=== PATIENT | male | born 1940 | race Caucasian/White ===

== ENCOUNTER 2018-04-11 10:59 | Outpatient (CLI) ==
[2013-11-30 17:57] VITALS: BMI 32.5
--- NOTE | 2018-04-11 14:32 | DI ---
EXAM: Three views of the nasal bones. History: Nasal trauma. Findings: Evaluation is difficult due to overlapping osseous and soft tissue structures. No grossly displaced fractures identified. No distinct air-fluid levels are seen in the sinuses. Impression: No acute findings.
--- NOTE | 2018-04-11 14:34 | DI ---
EXAM: Radiographs, right wrist HISTORY: Initial presentation for right wrist trauma. COMPARISON: None available. TECHNIQUE: Three views. FINDINGS: The bones are demineralized. No fracture detected. Osteoarthritic changes are greatest a t the MCP joints. No localized soft tissue abnormality detected. Atherosclerotic calcifications are present. IMPRESSION: No fracture or dislocation.
--- NOTE | 2018-04-11 14:34 | DI ---
EXAM: RIGHT HAND, 3 VIEWS HISTORY: Fall, pain FINDINGS: Bone density appears decreased. Diffuse arthropathy, greatest at the distal interphalange al joints suggesting osteoarthritis. Exam is limited by nonstandard patient position. No acute frac ture is seen. Joints appear remain intact. IMPRESSION: No fracture or dislocation is identified. If concern is persistent, consider follow-up imaging.
--- NOTE | 2018-04-11 14:34 | DI ---
EXAM: Radiographs, right knee HISTORY: Initial presentation for right knee trauma. COMPARISON: None available. TECHNIQUE: Four views. FINDINGS/IMPRESSION: Right total knee arthroplasty hardware components appear well seated. No fracture or dislocation tamera ntified. No localized soft tissue abnormality is detected.
--- NOTE | 2018-04-11 14:35 | DI ---
EXAM: LEFT KNEE. HISTORY: Knee pain FINDINGS: Left knee four view. No comparison. Patient has underwent previous total knee arthroplas ty. The prosthesis appears seated without evidence of dislodgement or loosening. No acute fracture is identified. There is at least a small joint effusion. IMPRESSION: Previous knee arthroplasty. No fracture. Joint effusion is present.
== END 2018-04-11 11:00 | disposition home or self-care (01) ==
LOC: RAD 10:59
PROVIDERS: ATTEND Family Medicine
DX: S00.83XA Contusion of other part of head, initial encounter (principal); M25.561 Pain in right knee; M79.641 Pain in right hand; R42 Dizziness and giddiness; W01.0XXA Fall on same level from slipping, tripping and stumbling without subsequent striking against object, initial encounter
CPT/HCPCS: 36415; 80053; 85025

== ENCOUNTER 2018-10-20 12:55 | Outpatient (CLI) ==
[2013-11-30 17:57] VITALS: BMI 32.5
== END 2018-10-20 12:56 | disposition home or self-care (01) ==
LOC: FCC-LAB 12:55
PROVIDERS: ATTEND Family Medicine
DX: E78.2 Mixed hyperlipidemia (principal); M19.90 Unspecified osteoarthritis, unspecified site; R53.82 Chronic fatigue, unspecified; I10 Essential (primary) hypertension; E53.8 Deficiency of other specified B group vitamins; Z12.5 Encounter for screening for malignant neoplasm of prostate
CPT/HCPCS: 36415; 80053; 80061; 82607; 84443; 85025

== ENCOUNTER 2019-05-12 12:17 | Inpatient (IN) ==
[2019-05-12 13:50] VITALS: BMI 27.6
[2019-05-12] MEDS ORDERED: PROAIR HFA IH PRN (14:20)
[2019-05-12] MEDS ORDERED: ALBUTEROL 0.083% NEB NEB PRN (14:20)
--- NOTE | 2019-05-12 17:31 | PCM ---
- Chief Complaint Chief Complaint: Spondylolisthesis Post Surgical - History of Present Illness History of Present Illness: 78 yo WM room 115 arrived today around 12:30. H+P from Dr. Trotter reviewed today from 05/07/19 through [facility]. Preoperative dx Lumbar DDD L4-5, right greater than left neural foraminal stenosis L4-5, facet hypertrophy with anterior facet spurring creating severe foraminal, chronic right lower extremity lumbar radiculopathy in L5. Post operative diagnosis reviewed and listed as same. procedure completed as right sided L4-5 hemilaminectomy with subtotal facetectomy and decompression of L5/S1 nerve roots more than that required for TLIF. Transforaminal lumbar interbody fusion of L4-5. placement of biochemical interobdy fusion device L4-5 with CoreLink titanium 9mm TLIF spacer. Posterolateral fusion with pedicle screw instrumentation L4-5. Allograft/ autograft denice. dr. Trotter did surgery, jesse munoz PA-C assisted. Procedure done under general anesthesia, crystalloid fluids given. BP 05/08/19 131/53 0039 , 05/08/19 141/64, 136/73 0757. D/C summary reviewed d/c 05/12/19 after procedure 05/07/19. Spondylolisthesis L4-5. Was d/c from facility and sent to our facility for TCU. meds advair, albuterol 2.5/3ml, astelin, lipitor, wellbutrin, levothyroxine, lisinopril, singulair and eye drops. Activity recommended by ortho to include lifting/bending/twisting LSO when up and out of bed. Bracing to be used regularly. participate in rehab protocol. Regular diet. Keep wound clean and dry and change every 72 hours. Cover for shower. Archer 5/325 for pain. exam from [facility] reviewed and passing gas, Lower extremity motor normal. Activity level up with assist, brace if OOB. Pain control. Impaired functional mobility balance gait and endurance. impaired mobility and ADL. Functinoal mobility able to walk in hallway using rolling walker. sit- stand transfer. Side lying to sit and sit to sidelying present. Supervised activity. Work w/ therapy on balance and endurance. Reviewed OT and phys therapy notes. Discharge summary obtained and reviewed from team, hospital course reviewed. D/ C meds reviewed. - Review of Systems Constitutional: No: fever, chills, weakness, sweats, fatigue, loss of appetite, other Eyes: No: blurred vision, double-vision, discharge, itching, pain, redness, photophobia, other Ears: No: pain, bleeding, drainage, ringing, hearing loss, other Nose: congestion. No: bleeding, discharge, other Throat: No: pain, swelling, voice change, other Mouth: No: bleeding, pain, swelling, other Respiratory: No: cough, shortness of air, wheeze, hemoptysis, pain with breathing, other Cardiovascular: No: chest pain, left arm pain, diaphoresis, PND, orthopnea, edema, palpitations, syncope, other Gastrointestinal: No: abdominal pain, other, nausea, vomiting, diarrhea, melena , hematemesis, hematochezia, dysphagia, constipation Genitourinary: No: dysuria, hematuria, frequency, incontinence, flank pain, penile discharge, testicular pain, testicular swelling, other Neurological: No: headache, other, dizziness, seizure, numbness, weakness, speech difficulty, problems with walking, tremor, fainting Musculoskeletal: pain, other (back pain) Skin: No: rash, pruritus, lacerations, wounds, bruising, other Immunology: No: hives, itching, frequent infections, difficulty healing, other Hematology: No: easy bruising, easy bleeding, swollen glands, other Endocrine: No: weight changes, cold intolerance, heat intolerance, excessive thirst, excessive hunger, polyuria, other Psychiatric: No: depression, anxiety, sleeplessness, hopelessness, suicidal, hallucinations, other Habits: No: tobacco use, substance use, alcohol use, other - Past Medical History Past Medical History: Chronic allergic rhinitis, headache, arthritis, recurrent falls, chronic knee pain, chronic hand pain, weakness, tremor, Spondylolisthesis L4-5. Asthma. hypothyroid. Iron def anemia. - Past Surgical History Past Surgical History: Hernia repair, hammer toe x 2, shoulder surgery x 2, total x2, spondylolisthesis l4-5 - Allergies Allergies/Adverse Reactions: Allergies Allergy/AdvReac Type Severity Reaction Status Date / Time latex AdvReac Verified 12/02/13 08:56 morphine AdvReac Verified 12/02/13 08:56 typhoid vaccine AdvReac Verified 12/02/13 08:56 typhus vaccine AdvReac Verified 12/02/13 08:56 [Typhus Vaccine] - Medications Medications: Medications Generic Name Dose Route Start Last Admin Trade Name Freq PRN Reason Stop Dose Admin Acetaminophen 500 mg 05/12/19 14:34 Tylenol PO Q12H PRN pain/fever Hydrocodone Bitart/Acetaminophen 1 tab 05/12/19 14:20 Archer 5-325 PO Q6HR PRN Pain Albuterol Sulfate 2 puff 05/12/19 14:20 Proair Hfa IH 3-4XD PRN Cough Albuterol Sulfate 1 vial 05/12/19 14:20 Albuterol 0.083% Neb NEB Q4HR PRN Cough Atorvastatin Calcium 20 mg 05/13/19 09:00 Lipitor PO DAILY SHERRILL Ferrous Sulfate 324 mg 05/13/19 09:00 Ferrous Sulfate PO DAILY SHERRILL Levothyroxine Sodium 100 mcg 05/13/19 06:30 Synthroid PO QDAC SHERRILL Lisinopril 5 mg 05/13/19 09:00 Zestril PO DAILY SHERRILL Montelukast Sodium 10 mg 05/13/19 09:00 Singulair PO DAILY SHERRILL Non-Formulary Medication 200 mg 05/13/19 09:00 Bupropion Hcl PO DAILY SHERRILL Non-Formulary Medication 1 drop 05/12/19 21:00 Ketotifen Fumarate [Zaditor] EACHEYE BID SHERRILL Non-Formulary Medication 1 drop 05/12/19 15:15 Azelastine Hcl [Azelastine Hcl] EACHEYE DAILY PRN Dry Eye Fluticasone/Salmeterol 1 puff 05/12/19 21:00 Advair 250-50 Diskus IH BID SHERRILL - Family History Past Family History: Arthritis, cancer both parents. - Social History Past Social History: Former smoker, started at 19, 1 ppd for a long time. No ETOH, no drugs now. lives with . No drug use. 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 - Body Composition Height: 5 ft 7.5 in Weight: 179 lb 1.6 oz Body Mass Index (BMI): 27.6 - Physical Examination HEENT: Constitutional: Appearance-No acute distress, Consistent with stated age. Orientation- Oriented x 3, alertGait-Reduced arm swing, slow pace, Build and Nutrition-[Normal BMI 27.6] General- Patient is pleasant and cooperative with the interview and exam. Integumentary: General-No rashes, ulcers or lesions. Palpation- Normal skin moisture/turgor. Skin is warm to touch, appropriate. Capillary refill is normal bilateral Upper and lower extremity. Surgical site lumbar spine parallel incisions with steristrips c/d/i. Head/Neck: Head- normocephalic and atraumatic. Neck- without visible/palpable lumps or pulsations. Palpation- No bony tenderness about head/neck along frontal, occipital, temporal, parietal, mastoid, jawline, zygoma, orbit or any other location. NO temporal artery tenderness. No TMJ tenderness. Neck Supple. Thyroid-No thyromegaly, no nodules Eye: Bilaterally PERRLA, EOMI. No discharge. Upper and lower eyelids are normal. Sclera/conjunctiva normal without discharge. Cornea is normal and clear. Lens is normal. Eyeball appears normal. No ciliary flushing, no conjunctival injection. ENMT: Pinna- normal without tenderness or erythema. External auditory canal Left- normal without erythema or discharge, no excessive cerumen. External auditory canal Right-normal without erythema or discharge, no excessive cerumen. TM left- Hopkins/pearly, normal light reflex and anatomy TM Right- Hopkins/ pearly, normal light reflex and anatomy Hearing Assessment-normal to conversational speech. Nose and sinus- No sinus tenderness along frontal/ maxillary region. External appearance normal and midline. Nares- bilateral quiet airflow, no discharge. Nasal mucosa- No bleeding noted and no ulcerations observed. [place], moist. Turbinates non boggy. Lips- normal color, moist without cracks/lesions Oral Cavity/Palate- hard/soft palate intact without lesions, oral mucosa pink and moist. Dentition assessed Oropharynx- no pharyngeal erythema, Uvula midline. No post nasal drip. No exudate. Salivary glands- Non tender to palpation CHEST/LUNG: Inspection- symmetric chest wall no pectus deformity. Normal effort , no distress, no use of accessory muscles. Palpation- nontender sternum, ribline. No abnormal pulsations. Auscultation- Breath sounds normal throughout all lung luque. Normal tracheal sounds, Normal bronchial sounds overlying sternum, Bronchovessicular sounds normal between scapulae posteriorly, Normal vessicular breath sounds heard throughout periphery. Lungs are clear today. Adventitious sounds- No wheezes, rales, rhonchi. CARDIOVASCULAR: Carotid artery- normal, no bruits or abnormal pulsations. Jugular vein- no pulsations. Palpation/Percussion- Normal PMI, no palpable thrill Auscultation- Regular rate and rhythm. III/ murmur noted in sitting, Extremities- No cyanosis, edema, increased warmth. ABDOMEN: Inspection- normal and no visible pulsations. Normal contour. Auscultation- Bowel sounds normal, no abdominal bruits. Palpation/Percussion- soft, non-tender, no rebound tenderness, no rigidity (guarding), no jar tenderness, no masses. Liver-no hepatomegaly, Spleen no splenomegaly, Hernias - none. Rectal not examined. Peripheral Vascular: Upper extremity Left- Normal temperature with pink nailbeds and no ulcerations. Upper extremity Right- Normal temperature with pink nailbeds and no ulcerations. Lower extremity- Normal temperature with pink nailbeds and no ulcerations. DP pulses 2+ bilaterally. Pedal hair intact. Normal capillary refill. Edema- No edema. Musculoskeletal: Generalized-No generalized swelling or edema of extremities, neurovascularly intact all four extremities. Spine, ribs, and pelvis: Spine, ribs, pelvis: FINDINGS:, tenderness Range of motion: AGENT TELEGRAPHER out of bed, reduced. Sitting in bedside chair Stability: FINDINGS: normal Muscle strength/tone: FINDINGS: Reduced, guarding is present. Wound is bandaged. C/D/I.Steri present. Right upper extremity: Right upper extremity: FINDINGS: normal, other (MCP right hand prominently enlarged. tenderness hand/wrist. No tenderness lat/med epicondyle, no tenderness olecranon. NO tenderness shoulder. Clavicle intact non tende.r ) , tenderness, NEGATIVE FOR: contractures, crepitus, deformity, swelling Range of motion: normal Stability: FINDINGS: normal Muscle strength/tone: FINDINGS: normal Left upper extremity: Left upper extremity: FINDINGS: normal, other (MCP enlarged R>>L. Tenderness wrist, hand, no tendnerness medial/lateral epicondyle or olecranon. No tenderness about clavicle. ), tenderness, NEGATIVE FOR: contractures, crepitus, deformity, swelling Range of motion: normal Stability: FINDINGS: normal Muscle strength/tone: FINDINGS: normal Right lower extremity: Right lower extremity: FINDINGS: tenderness (knee. Negro negative. Tender along patella and prepatellar bursa(CHRONIC), NEGATIVE FOR: crepitus, deformity, effusion, normal Range of motion: normal Stability: FINDINGS: normal Muscle strength/tone: FINDINGS: normal Left lower extremity: Left lower extremity: FINDINGS: tenderness (knee. Negro negative. Tender along patella and prepatellar bursa (CHRONIC). ), NEGATIVE FOR: crepitus , deformity, effusion, normal Range of motion: normal Stability: FINDINGS: normal Muscle strength/tone: FINDINGS: normal Neurological: General- Moves all 4 extremities symmetrically. Symmetrical face and body posture. Cranial nerves- individually evaluated II-XII and intact. PERRLA, Normal EOMI, visual/special senses appear intact, Face is symmetrical and normal sensation/movement, normal tongue, normal strength/posture of neck musculature. Reflexes- intact with DTR 2+ patellar, Achilles, bicep, brachial, tricep. Ankle clonus normal with 2 beats. Strength- mildly reduced, working w/ physical therapy. Soft touch- intact bilateral UE and LE. Temperature sensation - intact bilateral UE and LE. Neuropsych: Oriented- Person, place, time. (AAOx3), Mood/affect- normal and congruent. Able to articulate well. Speech-Normal speech, normal rate, normal tone, normal use of language, volume and coherence. Thought content- normal with ability to perform basic computations and apply abstract thought/reason. Associations- intact, no SI/HI, no hallucinations, delusions, obsessions. Judgment/insight- Appropriate. Memory-Recall intact, remote and recent memory intact. Knowledge- Age appropriate fund of knowledge, concentration and attention span normal. Lymphatic: Head/Neck- normal size and non tender to palpation. Axillary- normal size and non tender to palpation. Femoral and Inguinal- normal size and non tender to palpation. No labs. - Lab/Tests/Diagnostic Imaging Lab/Tests/Diagnostic Imaging: None. - Plan Plan: 1. Spondylolisthesis L4-5: Post surgical, pain controlled with opiates.We discussed opiates as a form of pain medication to act as an adjunct to Tylenol, NSAIDS, steroids, topical rubs such as icyhot, bengay, biofreeze, aspercreme, cool/warm compresses, stretching/exercising etc. We discussed pain cream. Opiates are not meant to eliminate pain but rather are designed to facilitate function and improve ADL. We discussed ADL today, discussed goals of physical and Occ therapy. We talked specifically about R/B/A to opiates, to overuse of opiates and dangers of using opiates even at recommended levels. We reviewed the level of pain, ADL, any adverse effects. We also reviewed personal and family history of substance abuse and discussed appropriate destruction of unwanted Rx in future. - Admit to TCU - Vitals per TCU admission - No telemetry - NO labs needed - Pain control with oral meds - Phs therapy - Occ therapy - AGENT TELEGRAPHER brace when out of bed 2. Essential HTN: Chronic/controlled - Continue home meds. 3. Asthma: Chronic/controlled - Continue home meds. 4. Hypothyroid: Chronic/controlled. - Continue home meds. - f/u outpatient. 5. Diet: Regular 6. DVT: Prophylactic early ambulation. Up and moving. 7. Activity: Per therapy. 8. Disposition: Balance and coordination/strengthening post admit. 35 minutes spent on this admission to TCU today. DOing well, Phys therapy/Occ therapy to f /u w/ patient.
[2019-05-12] MEDS ORDERED: PROPYLENE GLYCOL EACHEYE SCH (21:00)
[2019-05-12] MEDS ORDERED: [UNRECOGNIZED DRUG - OTHER] EACHEYE SCH (21:00)
[2019-05-12] MEDS ORDERED: PEG EACHEYE SCH (21:00)
[2019-05-12] MEDS: ADVAIR 250-50 DISKUS IH SCH (21:02)
[2019-05-12] MEDS: NON-FORMULARY MEDICATION (Ketotifen Fumarate [Zaditor] 1 DROP) EACHEYE SCH (21:02)
[2019-05-13] MEDS: NORCO 5-325 PO PRN ×3 (03:09→22:03)
[2019-05-13] MEDS: SYNTHROID PO SCH (05:43)
[2019-05-13] MEDS ORDERED: NON-FORMULARY MEDICATION (Ferrous Sulfate [Ferrous Sulfate] 325 MG) PO SCH (09:00)
[2019-05-13] MEDS: NON-FORMULARY MEDICATION (Azelastine Hcl [Azelastine Hcl] 1 DROP) EACHEYE PRN (09:18)
[2019-05-13] MEDS: NON-FORMULARY MEDICATION (Ketotifen Fumarate [Zaditor] 1 DROP) EACHEYE SCH ×2 (09:18→20:40)
[2019-05-13] MEDS: ZESTRIL PO SCH (09:19)
[2019-05-13] MEDS: FERROUS SULFATE PO SCH (09:19)
[2019-05-13] MEDS: ADVAIR 250-50 DISKUS IH SCH ×2 (09:19→20:40)
[2019-05-13] MEDS: LIPITOR PO SCH (09:19)
[2019-05-13] MEDS: SINGULAIR PO SCH (09:19)
--- NOTE | 2019-05-13 10:23 | RS.PTINEVL ---
Subjective - Patient information Date of Evaluation: 05/12/19 Date of Arrival on Unit: 05/12/19 Admitted From:: Facility Transfer (transfer for swing bed) Diagnosis: lumbar spondylolisthesis, s/p TLIF on 05/07/19 Usual Living Arrangement: With Spouse Living Arrangement Comments: Has basement with 10 stairs. Bedroom and main living area on first floor and has ramp to get into home. 1 step to enter kitchen Home Environment: House, Ramp Medical History: Hypertension, Arthritis Medical History Comments:: heart murmur, asthma, depression/anxiety, hypothyroid LATEX ALLERGY?: No Surgical History: Knee Replacement (Bilateral), Shoulder Replacement Medications: see chart Subjective Information/ Patient Comments:: pt states that he is ready to try to walk. States that he is having some pain in lumbar (stinging pain) - Level of function Prior to this admission, the patient could do the following:: Independent Selfcare, Independent ADL's, Independent Ambulation, Drive, Participated in Social Activities Outside home Current Level of Function: Partially Dependent Current Equipment Used at Home: walker,cane railing in tub and railing and ramp in entrance of home Pain Assessement - Location Lumbar spine Description: Sharp, Acute ("stinging pain") Pain Behavior: Facial Grimacing Pain Aggravating Factors: Standing, Walking Pain Alleviating Factors: Medication Interventions - Objective Patient Orientation: Person, Place, Situation Observation: pt seen sitting up in chair. Range of Motion - ROM Right Upper Extremity AROM: WFL's Left Upper Extremity AROM: WFL's Right Lower Extremity AROM: WFL's Left Lower Extremity AROM: WFL's Muscle Strength - Muscle Strength Right Upper Extremity Strength: Mild Weakness (grossly 4/5) Left Upper Extremity Strength: Mild Weakness (grossly 4/5) Right Lower Extremity Strength: Mild Weakness (hip flex 4-/5, knee flex/ext 4/5 , ankle Df/PF 4/5) Left Lower Extremity Strength: Mild Weakness (hip flex 4-/5, knee flex/ext 4/5, ankle Df/PF 4/5) Sensation - Sensation Right Upper Extremity Sensation: Intact/Normal Left Upper Extremity Sensation: Intact/Normal Right Lower Extremity Sensation: Impaired (n/t R foot.) Left Lower Extremity Sensation: Intact/Normal Palpation Palpation Findings: Tenderness, Muscle Guarding Comments:: tenderness and muscle guarding in lumbar paraspinals Balance - Sitting Balance and Reactions Static Sitting Balance: Good Dynamic Sitting Balance: Fair - Standing Balance and Reactions Static Standing Balance: Poor Dynamic Standing Balance: Poor Standing Equilibrium Reactions: Delayed Left, Delayed Right Standing Protective Reactions: Delayed Left, Delayed Right Functional Mobility - Bed Mobility Comments:: pt seen sitting up in chair and did not wish to return to bed - Transfers Sit to Stand: Min Assist Stand to Sit: CGA - Safety Awareness Safety Awareness: Fair ORLIN INDEX SCORE: 56 Ambulation - Ambulation Assistive Device Used: Rolling Walker Orthotic/Prosthetic Device: Yes (LSO brace) Distance: 100ft Assistance needed with Ambulation: CGA, Min Assist Gait Deviations: Forward posture, Short stride, Deviates from path Ambulation Comments: pt amb with flexed posture, decreased step length, and requires tactile cues for placement of rwx. pt requires verbal cues for step length and posture as well Factors Affecting Ambulation: Decreased Balance, Pain, Decreased Safety, Limited Endurance Treatment time - Units charged Gait trainin - Time with patient Length of Evaluation: 19 Total treatment time: 31 Patient Education - Education Patient Education: Activity Modification, Education of Plan of Care Teaching Recipient: Patient Teaching Methods: Discussion Comments: discussion with patient regarding POC and safety. Discussed with patient MD ordered for pt to wear brace when out of bed. Assessment - Assessment Problem List:: Decreased level of function, Requires training/education, Decreased safety/Risk of falls, Weakness, Pain limits previous level of function Rehab Potential: Good Further Therapy Indicated?: Yes Candidate for Swing Bed for Therapy Services?: pt is swing bed Evaluation Complexity: HISTORY: Medium, EXAM OF BODY SYSTEMS: Medium, CLINICAL PRESENTATION: Medium, CLINICAL DECISION MAKING: Medium Short Term Goals GOAL #1: pt demonstrate rolling and scooting in bed Goal to be met by: 05/15/19 GOAL #2: pt transfer sup to/from sit CGA Goal to be met by: 05/15/19 GOAL #3: Transfer sit to/from stand CGA Goal to be met by: 05/15/19 GOAL #4: pt amb with rwx with LSO brace with CGA Goal to be met by: 05/15/19 GOAL #5: Improve dyn stand balance fair+ Goal to be met by: 05/15/19 Asbestos Cement Sheet Supervisor Goals GOAL #1: Transfer sup to/from sit to/from stand SB to independent Goal to be met by: 05/22/19 GOAL #2: pt amb with AAD with LSO brace SBA functional household distances Goal to be met by: 05/22/19 GOAL #3: pt ascend/descend ramp with rwx with CGA Goal to be met by: 05/22/19 Plan Plan of Care: Therapeutic EX, Therapeutic Activity Other:: gait training Frequency of Treatment: 1-2 X day, as tolerated Duration of Treatment: 1-2 weeks Anticipated Discharge Destination: Home Treatment Diagnosis (ICD 10 Codes): LBP M 54.5. gait difficulty R26.2. Balance impaired R 26.81. muscle weakness M 62.81 Has the Physician been added for Co-signature?: Yes
[2019-05-13] MEDS: BUPROPION HCL 200 MG PO SCH (10:36)
--- NOTE | 2019-05-13 11:12 | RS.OTINEVL ---
Subjective - Patient information Date of Evaluation: 05/13/19 Date of Arrival on Unit: 05/12/19 Admitted From:: Facility Transfer (transfer for swing bed) Diagnosis: spondylothisis of L4, L5, with right L4, L5 transforaminal PRECAUTIONS: Fall risk Usual Living Arrangement: With Spouse Living Arrangement Comments: Has basement with 10 stairs. Bedroom and main living area on first floor and has ramp to get into home. 1 step to enter kitchen Home Environment: House, Ramp Medical History: Hypertension, Arthritis Medical History Comments:: heart murmur, asthma, depression/anxiety, hypothyroid LATEX ALLERGY?: No Surgical History: Knee Replacement (Bilateral), Shoulder Replacement Surgical History Comments:: Lumbar fusion, B Total shoulder replacements, B TKA, Medications: see chart Subjective Information/ Patient Comments:: " I need to get back to the pool." " I am not that big on the pool." Some doctors think I may have Parkinson's." - Level of function Prior to this admission, the patient could do the following:: Independent Selfcare, Independent ADL's, Independent Ambulation, Drive, Participated in Social Activities Outside home Abilities prior to this admission: Pt lives at home with his . Pt walked with a RW. Pt took a shower by sitting on a plastic chair in the tub shower. Pt was independent with bathing. Current Equipment Used at Home: walker,cane railing in tub and railing and ramp in entrance of home Pain Assessment - Pain Pain Score: 9 Side: bilateral Pain Location Body Site: Back Pain Aggravating Factors: Exercise/Activity Pain Alleviating Factors: Ice, Medication, Lying Supine Interventions - Objective Patient Orientation: Person, Place, Time, Situation Observation: Pt walks with a shuffle of the feet. Pt leans forward while walking with a RW. Pt likes to joke around. Interventions - ROM Right Upper Extremity AROM: Slight limitation Left Upper Extremity AROM: Slight limitation - Strength Right Upper Extremity Strength: Mild Weakness Left Upper Extremity Strength: Mild Weakness - Sensation Right Upper Extremity Sensation: Intact/Normal Left Upper Extremity Sensation: Intact/Normal Balance - Sitting Balance Static Sitting Balance: Poor Dynamic Sitting Balance: Poor - Standing Balance Static Standing Balance: Poor Dynamic Standing Balance: Poor ADL Skills - Self Feeding Self Feeding: Independent - Grooming Grooming: Min Assist - Dressing Dressing UE: Min Assist Dressing LE: Max Assist - Toilet Management Toileting Management: Min Assist Functional Mobility - Bed Mobility Rolling R/L: Not Tested Scooting: Not Tested Supine to Sit: Not Tested Sit to Supine: Not Tested - Transfers Stand to Sit: Min Assist Stand Pivot Transfers: Min Assist - Ambulation Weight Bearing Status: FWB Assistive Device Used: Rolling Walker Assistance needed with Ambulation: Min Assist, 1 person assist - Safety Awareness Safety Awareness: Fair ORLIN INDEX SCORE: 56 Additional Treatment Performed - Additional units charged ADL: 15 - Time with patient Length of Evaluation: 16 Total treatment time: 31 Activities Would you be interested in leaving your room for activities?: Yes Would you enjoy group activities?: Yes Do you have difficulty with your vision?: Yes What types of things do you enjoy doing? Any Hobbies?: sitting in the sun Patient Interests:: Reading Books/Magazines, Watching Television, Visiting/ Socializing Patient Education Patient Education: Education of diagnosis, Home Exercise Program, Home Safety, Education of Plan of Care Teaching Recipient: Patient Teaching Methods: Discussion Assessment Problem List:: Decreased level of function, Requires training/education, Decreased safety/Risk of falls, Weakness, Pain limits previous level of function Rehab Potential: Good Further Therapy Indicated?: Yes Candidate for Swing Bed for Therapy Services?: yes Evaluation Complexity: HISTORY: Medium, EXAM OF BODY SYSTEMS: Medium, CLINICAL DECISION MAKING: Medium Short Term Goals - Goals GOAL 1: To be CGA with functional ADL transfers. Goal to be met by: 05/20/19 GOAL 2: To be CGA with dressing. Goal to be met by: 05/19/19 GOAL 3: To be CGA with bathing. Goal to be met by: 05/20/19 GOAL 4: Pt to increase BUE strength to 4/5 to increase (I). Goal to be met by: 05/20/19 Half-Way Goals GOAL 1: (Mod-I) with ADL transfers. Goal to be met by: 05/23/19 GOAL 2: (Mod-I) with self care. Goal to be met by: 05/23/19 GOAL 3: Mod-I with functional mobility. Goal to be met by: 05/23/19 Plan Plan of Care: Therapeutic EX, Neuromuscular Re-Educ, Therapeutic Activity, Self- Care/Home Management Modalities: Cold Pack/Cryotherapy Frequency of Treatment: 1-2 X day, as tolerated Duration of Treatment: 2 Weeks Anticipated Discharge Destination: Home Treatment Diagnosis (ICD 10 Codes): M62.81 Muscle Weakness, Z74.1 Need for assistance with personal care Has the Physician been added for Co-signature?: Yes
[2019-05-14] MEDS: SYNTHROID PO SCH (05:37)
[2019-05-14] MEDS: ADVAIR 250-50 DISKUS IH SCH ×2 (09:16→20:30)
[2019-05-14] MEDS: SINGULAIR PO SCH (09:17)
[2019-05-14] MEDS: ZESTRIL PO SCH (09:17)
[2019-05-14] MEDS: FERROUS SULFATE PO SCH (09:17)
[2019-05-14] MEDS: LIPITOR PO SCH (09:17)
[2019-05-14] MEDS: BUPROPION HCL 200 MG PO SCH (09:17)
[2019-05-14] MEDS: NON-FORMULARY MEDICATION (Ketotifen Fumarate [Zaditor] 1 DROP) EACHEYE SCH ×2 (09:17→20:30)
[2019-05-14] MEDS: TYLENOL PO PRN (20:30)
[2019-05-15] MEDS: NORCO 5-325 PO PRN ×2 (03:34→16:35)
[2019-05-15] MEDS: SYNTHROID PO SCH (05:37)
[2019-05-15] MEDS: ADVAIR 250-50 DISKUS IH SCH ×2 (08:05→20:46)
[2019-05-15] MEDS: SINGULAIR PO SCH (08:05)
[2019-05-15] MEDS: FERROUS SULFATE PO SCH (08:05)
[2019-05-15] MEDS: LIPITOR PO SCH (08:05)
[2019-05-15] MEDS: ZESTRIL PO SCH (08:05)
[2019-05-15] MEDS: NON-FORMULARY MEDICATION (Azelastine Hcl [Azelastine Hcl] 1 DROP) EACHEYE PRN (08:06)
[2019-05-15] MEDS: BUPROPION HCL 200 MG PO SCH (08:06)
[2019-05-15] MEDS: NON-FORMULARY MEDICATION (Ketotifen Fumarate [Zaditor] 1 DROP) EACHEYE SCH ×2 (08:08→20:48)
--- NOTE | 2019-05-15 12:57 | PCM.PROG ---
Subjective: 78 yo WM HD 4 with admission to TCU for PT/OT post surgical procedure spondylolisthesis L4-5. Chronic arthritis, chronic falls, chronic bilateral knee pain, HTN, Hyperlipidemia, hypothyroidism, chronic hand pain, tremor, allergic rhinitis. Since his arrival on sat05/13/19, he has been afebrile with temp range of 97.5-98.3. BP have been stable to mildly reduced 129/76, 108/60, 103/53, 109/57, 125/69, 114/67, 130/73. HR has been stable at 62-79. O2 96% on RA. He has no IV, he is tolerating PO consuming 75-100% of his meals. Since 05/12 he has had a total of 29 urine output and 6 BM. HE has been getting Phys therapy and Occ therapy post lumbar fusion 05/07/19. He is been OOB, up into chair, regularly ambulating/walking. LSO in place when out of bed. He remains alert/active an w/o c/o. Pain meds currently include norco 5-325. Prefers to sleep in recliner as that is how he sleeps at home. Nurses notes reviewed. Ambulating regularly with steady slow shuffling gait. No abdominal pain, no N/V /D/C. He is having good BM. Appetite is good, meal consumption good as above. NO URI, no cough, no chest pain, no HUGHES. He has no calf pain, no calf swelling. Wound on low back remains c/d/i, covered w/ steri strips. Dressings changed regularly by nursing. He has had worsening balance and safety over time, noted prominent issues at and here now for rehab post lumbar spinal fusion. Goal will be d/c home w/ . Per Carolynn Pelaez, patient has rolling walker, cane, front door jodie, tub rails. As of 05/13/19 17:17 note patient standing independently. Pain is improving 4-6/10 most times, Strength is improving. Reviewed Phys therapy and OCC notes. CGA with ambulation, requiring frequent verbal cuing for posture. Progressing w/ goals. Occ therapy notes suggested poor safety awareness but progressing on all goals. Phys therapy note from 05/12: Living arrangement at home has basement with 10 stairs, bedroom and main living area on first floor and has front of door ramp. 1 step needed to enter kitchen. Therapeutic Exercises/activity, gait training. 1-2x per day x 1-2 weeks. Anticipate d/c home. Mild weakness RUE, LUE, RLE, LLE. Intact normal RUE, LUE, impaired RLE but normal LLE. Sitting balance good. Standing balance poor. Occ therapy note from 05/13/19 reviewed. Prior to admit he was independent on ADL/ambulation/driving/social activities. Lives w/ at home. Goal CGA w/ functional ADL transfers, Goal 2 cGA with dressing, to be cga w bathing goal 3, #4 increase BUE strength to 4/5. Similar plan of care therapeutic exercise, neuromuscular re-education, therapeutic education and self care/home management. Rounding today 12:30-1:10. present. He c/o irritation of testicles and along the IRON HANDLER. He has not been in bed much, wearing IRON HANDLER a lot. Not wearing underwear. Groin is resting against his thigh. His briefs are too big. Recommended boxer briefs to them and to buy them L and not XL so that they are not as baggy. This will allow the testicles to not rest directly near the thigh, will reduce sticking as well. will buy a pair to try. REVIEW OF SYMPTOMS: (Positives bolded) General: weight loss, fever, chills, night sweats, fatigue, appetite loss HEENT: blurry vision, eye pain, eye discharge, dry eyes, decreased vision, sore throat tinnitus, bloody nose, hearin gloss, sinus pain/pressure, ear pain/ pressure. Respiratory: shortness of breath, cough, hemoptysis, wheezing, pleurisy, Cardiovascular: chest pain, PND, palpitation, edema, orthopnea, syncope, swelling of extremities Gastro: Nausea, vomiting, diarrhea, hematemesis, abdominal pain, constipation Genito: hematuria, dysuria, glycosuria, hesitancy, frequency, incontinence Musckelo: Arthralgia, myalgia, muscle weakness, joint swelling, BACK PAIN Skin: rash, pruritis, sores, nail changes, skin thickening, change in wart/mole , itching, rash, new lesions, pruritus, nail changes Neuro: Migraine, numbness, ataxia, tremor, vertigo, weakness, memory loss, Irritability, dizziness Endocrine: excessive thirst, polyuria, cold intolerance, heat intolerance, goiter Psychiatric: depression, anxiety, anti-depressants, alcohol abuse, drug abuse, insomnia, change in sleep pattern and mood changes Heme/lymph: easy bruising, bleeding gums, blood clots, swollen glands, lymphedema, Allergic/immune: allergic rhinitis, hay fever, asthma, hives Objective: Vital Signs (72 hours) 05/12/19 05/12/19 05/12/19 13:14 18:00 20:00 Temperature 97.5 F L 97.9 F Pulse Rate 79 70 Respiratory 16 14 18 Rate Blood Pressure 129/76 108/60 O2 Sat by Pulse 94 L 93 L Oximetry 05/13/19 05/13/19 05/13/19 05:06 18:00 20:00 Temperature 97.9 F 97.9 F Pulse Rate 62 68 Respiratory 16 18 18 Rate Blood Pressure 103/53 L 109/57 L O2 Sat by Pulse 94 L 95 Oximetry 05/14/19 05/14/19 05/15/19 05:06 17:44 04:34 Temperature 97.9 F 98.3 F 97.6 F Pulse Rate 62 67 64 Respiratory 18 18 20 Rate Blood Pressure 125/69 114/67 130/73 O2 Sat by Pulse 97 96 96 Oximetry Constitutional: Appearance-No acute distress, Consistent with stated age. Orientation- Oriented x 3, alert Gait-Using rollator IRON HANDLER in place. Build and Nutrition-[Normal BI 27.6] General- Patient is pleasant and cooperative with the interview and exam. Integumentary: General-No rashes, ulcers or lesions. Palpation- Normal skin moisture/turgor. Skin is warm to touch, appropriate. Capillary refill is normal bilateral Upper and lower extremity. ENMT: Hearing Assessment-normal to conversational speech. Nose and sinus- No sinus tenderness along frontal/maxillary region. External appearance normal and midline. Nares- bilateral quiet airflow, no discharge. Nasal mucosa- No bleeding noted and no ulcerations observed. Bladen, moist. Turbinates non boggy. Lips- normal color, moist without cracks/lesions Oral Cavity/Palate- hard/soft palate intact without lesions, oral mucosa pink and moist. Dentition assessed Oropharynx- no pharyngeal erythema, Uvula midline. No post nasal drip. No exudate. Salivary glands- Non tender to palpation CHEST/LUNG: Inspection- symmetric chest wall no pectus deformity. Normal effort , no distress, no use of accessory muscles. Palpation- nontender sternum, ribline. No abnormal pulsations. Auscultation- Breath sounds normal throughout all lung luque. Normal tracheal sounds, Normal bronchial sounds overlying sternum, Bronchovessicular sounds normal between scapulae posteriorly, Normal vessicular breath sounds heard throughout periphery. Lungs are clear today. Adventitious sounds- No wheezes, rales, rhonchi. CARDIOVASCULAR: Carotid artery- normal, no bruits or abnormal pulsations. Jugular vein- no pulsations. Palpation/Percussion- Normal PMI, no palpable thrill Auscultation- Regular rate and rhythm. III/ murmur noted in sitting, Extremities- No cyanosis, edema, increased warmth. ABDOMEN: Inspection- normal and no visible pulsations. Normal contour. Auscultation- Bowel sounds normal, no abdominal bruits. Palpation/Percussion- soft, non-tender, no rebound tenderness, no rigidity (guarding), no jar tenderness, no masses. Liver-no hepatomegaly, Spleen no splenomegaly, Hernias - none. Rectal not examined. Peripheral Vascular: Upper extremity Left- Normal temperature with pink nailbeds and no ulcerations. Upper extremity Right- Normal temperature with pink nailbeds and no ulcerations. Lower extremity- Normal temperature with pink nailbeds and no ulcerations. DP pulses 2+ bilaterally. Pedal hair intact. Normal capillary refill. Edema- No edema. Musculoskeletal: Generalized-No generalized swelling or edema of extremities, neurovascularly intact all four extremities. HE is using rollator to ambulate. TILA Spine, ribs, and pelvis: Spine, ribs, pelvis: FINDINGS:, tenderness Range of motion: TILA out of bed, reduced. Stability: FINDINGS: normal Muscle strength/tone: FINDINGS: Reduced, guarding is present. Wound is bandaged. C/D/I.Steri present. Right upper extremity: Right upper extremity: MCP right hand prominently enlarged. tenderness hand/wrist. No tenderness lat/med epicondyle, no tenderness olecranon. NO tenderness shoulder. Clavicle intact non tende.r ), tenderness, NEGATIVE FOR: contractures, crepitus, deformity, swelling Range of motion: normal Left upper extremity: Left upper extremity: MCP enlarged R>>L. Tenderness wrist, hand, no tendnerness medial/lateral epicondyle or olecranon. No tenderness about clavicle. ), tenderness, NEGATIVE FOR: contractures, crepitus, deformity, swelling Range of motion: normal Stability: FINDINGS: normal Muscle strength/tone: FINDINGS: normal Bilateral lower extremity: Range of motion: normal Stability: FINDINGS: normal Muscle strength/tone: FINDINGS: normal Genital: Testicles without obvious problem today. Prickly heat, sticking to legs. Normal testicles, normal scrotum no e/o infection. Neurological: General- Moves all 4 extremities symmetrically. Symmetrical face and body posture. Cranial nerves- individually evaluated II-XII and intact. PERRLA, Normal EOMI, visual/special senses appear intact, Face is symmetrical and normal sensation/movement, normal tongue, normal strength/posture of neck musculature. Soft touch- intact bilateral UE and LE. Temperature sensation- intact bilateral UE and LE. Neuropsych: Oriented- Person, place, time. (AAOx3), Mood/affect- normal and congruent. Able to articulate well. Speech-Normal speech, normal rate, normal tone, normal use of language, volume and coherence. Thought content- normal with ability to perform basic computations and apply abstract thought/reason. Associations- intact, no SI/HI, no hallucinations, delusions, obsessions. Judgment/insight- Appropriate. Memory-Recall intact, remote and recent memory intact. Knowledge- Age appropriate fund of knowledge, concentration and attention span normal. Plan: Spondylolisthesis L4-5: Incision site c/d/i. Walking with nursing. No issues w / phys therapy or occ therapy. Doing well at this time. Improving, strength is good, no c/o. - Continue admit to TCU, next ortho appt 05/21/19 - Vitals per TCU admission - No telemetry - NO labs for now - Pain control with oral meds - Phs therapy - Occ therapy - IRON HANDLER brace when out of bed - Would like him in bed more freq feet elevated. NO overt edema at present. 2. Essential HTN: Chronic/controlled - Continue home meds. 3. Asthma: Chronic/controlled - Continue home meds. 4. Hypothyroid: Chronic/controlled. - Continue home meds. - f/u outpatient. 5. Diet: Regular 6. DVT: Prophylactic early ambulation. Up and moving. 7. Activity: Per therapy. 8. NEW PROBLEM: Testicular irritation: COntinue barrier cream. REcommended boxer briefs to allow scrotum to not stick to his leg. 9. Disposition: Balance and coordination/strengthening to continue 35 minutes spent on this admission to TCU today. 25 minutes spent with patient today on rounding. REviewed therapy documentation.
[2019-05-16] MEDS: SYNTHROID PO SCH (05:43)
[2019-05-16] MEDS: ADVAIR 250-50 DISKUS IH SCH ×2 (08:36→20:55)
[2019-05-16] MEDS: SINGULAIR PO SCH (08:36)
[2019-05-16] MEDS: NON-FORMULARY MEDICATION (Ketotifen Fumarate [Zaditor] 1 DROP) EACHEYE SCH ×2 (08:36→20:56)
[2019-05-16] MEDS: BUPROPION HCL 200 MG PO SCH (08:36)
[2019-05-16] MEDS: ZESTRIL PO SCH (08:37)
[2019-05-16] MEDS: LIPITOR PO SCH (08:37)
[2019-05-16] MEDS: FERROUS SULFATE PO SCH (08:37)
[2019-05-16] MEDS: NORCO 5-325 PO PRN (21:05)
[2019-05-17] MEDS: SYNTHROID PO SCH (05:59)
[2019-05-17] MEDS: NORCO 5-325 PO PRN (06:00)
[2019-05-17] MEDS: ZESTRIL PO SCH (08:33)
[2019-05-17] MEDS: LIPITOR PO SCH (08:33)
[2019-05-17] MEDS: FERROUS SULFATE PO SCH (08:33)
[2019-05-17] MEDS: ADVAIR 250-50 DISKUS IH SCH ×2 (08:33→20:52)
[2019-05-17] MEDS: NON-FORMULARY MEDICATION (Ketotifen Fumarate [Zaditor] 1 DROP) EACHEYE SCH ×2 (08:33→20:51)
[2019-05-17] MEDS: SINGULAIR PO SCH (08:34)
[2019-05-17] MEDS: BUPROPION HCL 200 MG PO SCH (08:34)
[2019-05-18] MEDS: NORCO 5-325 PO PRN ×2 (05:51→23:12)
[2019-05-18] MEDS: SYNTHROID PO SCH (05:51)
[2019-05-18] MEDS: BUPROPION HCL 200 MG PO SCH (08:01)
[2019-05-18] MEDS: LIPITOR PO SCH (08:02)
[2019-05-18] MEDS: NON-FORMULARY MEDICATION (Ketotifen Fumarate [Zaditor] 1 DROP) EACHEYE SCH ×2 (08:02→20:35)
[2019-05-18] MEDS: ADVAIR 250-50 DISKUS IH SCH ×2 (08:02→20:35)
[2019-05-18] MEDS: SINGULAIR PO SCH (08:03)
[2019-05-18] MEDS: ZESTRIL PO SCH (08:03)
[2019-05-18] MEDS: FERROUS SULFATE PO SCH (08:03)
--- NOTE | 2019-05-18 18:12 | PCM.PROG ---
Subjective: 78 yo WM HD #7 with admission to TCU for PT/OT post surgical procedure spondylolisthesis L4-5. Chronic arthritis, chronic falls, chronic bilateral knee pain, HTN, Hyperlipidemia, hypothyroidism, chronic hand pain, tremor, allergic rhinitis. Since his arrival on sat05/13/19, he has been afebrile with temp range of 97.4-98.3. BP have been stable to mildly reduced 129/76, 108/60, 103/53, 109/57, 125/69, 114/67, 130/73, 121/62, 112/65, 104/55. Was 155/78 05:15, 148/84 at 06:24 then back to normal 135/71 at 1800. He was mildly elevated at 459 this am 151/76 and back to normal this pm at 130/71. HR has been stable at 62-82. O2 93-98% on RA. He has no IV, he is tolerating PO consuming 75-100% of all ofhis meals. Since 05/12/19 he has had a total of 58 urine output (29 urine output since last note) and 10 BM (4 BM since last note) . Pain seems to range from 3-7/10. He is getting tylenol 500 PRN when low pain (up to max dose of 2G per day) and norco 5/325 for worsening pain. Mostly in recliner. Brace on low back. Tolerating breakfast. Dressing changed regularly. Ambulating regularly. Good pace. Using grabber to put on shoes. Sleeping in recliner, not wanting to get into bed. Rash in groin resolved with underwear change. More pain yesterday am compared to previous. Not comfortable in chair. Up independently with walker now. Up and ambulating. Slow/steady, "Unstead at times" Not tolerating bed, in there 1-2 hours only. More edema today, ? Home visit today, more walking than normal. Constipated more than normal having 1/2 BM as normal. Discussed to get into bed and elevate legs. Pain is decreasing per time. No hp/thigh/buttock pain. Low back pain is improving. Home visit today 1300 Occ therapy. Slowly returning to previous level of home ADL/life. REviewed note from [facility]. HOme study went good. Feet and ankles more swollen upon arrival. Did not want to get into bed to elevate. I discussed with him again during evening rounds. Living arrangement at home has basement with 10 stairs, bedroom and main living area on first floor and has front of door ramp. 1 step needed to enter kitchen. Admitting dx: Spondylolisthesis L4-5 s/p transforaminal lumbar interbody fusion, impaired functional mobility, balance and gait. Chronic HTN, hyperlipidemia, hypothyroidism, OA. Therapy: Occ Therapy, Phys Therapy: Therapeutic Exercises/activity, gait training. 1-2x per day x 1-2 weeks. Anticipate d/c home end of this week. REVIEW OF SYMPTOMS: (Positives bolded) General: weight loss, fever, chills, night sweats, fatigue, appetite loss weight gain, mildly HEENT: blurry vision, eye pain, eye discharge, dry eyes, decreased vision, sore throat tinnitus, bloody nose, hearin gloss, sinus pain/pressure, ear pain/ pressure. Respiratory: shortness of breath, cough, hemoptysis, wheezing, pleurisy, Cardiovascular: chest pain, PND, palpitation, bilateral pedal edema, orthopnea , syncope, swelling of extremities Gastro: Nausea, vomiting, diarrhea, hematemesis, abdominal pain, constipation Genito: hematuria, dysuria, glycosuria, hesitancy, frequency, incontinence [place]elo: Arthralgia, myalgia, muscle weakness, joint swelling, BACK PAIN Skin: rash, pruritis, sores, nail changes, skin thickening, change in wart/mole , itching, rash, new lesions, pruritus, nail changes Neuro: Migraine, numbness, ataxia, tremor, vertigo, weakness, memory loss, Irritability, dizziness Endocrine: excessive thirst, polyuria, cold intolerance, heat intolerance, goiter Psychiatric: depression, anxiety, anti-depressants, alcohol abuse, drug abuse, insomnia, change in sleep pattern and mood changes Heme/lymph: easy bruising, bleeding gums, blood clots, swollen glands, lymphedema, Allergic/immune: allergic rhinitis, hay fever, asthma, hives Objective: Vital Signs (72 hours) 05/16/19 05/16/19 05/17/19 05:16 17:00 05:15 Temperature 97.4 F L 97.9 F 97.7 F Pulse Rate 66 71 71 Respiratory 16 18 18 Rate Blood Pressure 112/65 104/55 L 155/78 H O2 Sat by Pulse 95 96 94 L Oximetry 05/17/19 05/17/19 05/18/19 06:24 18:00 04:59 Temperature 98.2 F 97.7 F Pulse Rate 82 68 Respiratory 18 18 Rate Blood Pressure 148/84 H 135/71 151/76 H O2 Sat by Pulse 93 L 98 Oximetry 05/18/19 17:40 Temperature 97.6 F Pulse Rate 66 Respiratory 18 Rate Blood Pressure 130/71 O2 Sat by Pulse 96 Oximetry Constitutional: Appearance-No distress, Consistent with stated age. Eating. Rounding time 17:00. Orientation- Oriented x 3, alert Build and Nutrition-[ Normal BI 27.6] General- Patient is pleasant and cooperative with the interview and exam. Eating dinner, tolerating this well. 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 Integumentary: General-No rashes, ulcers or lesions. Palpation- Normal skin moisture/turgor. Skin is warm to touch, appropriate. Capillary refill is normal bilateral Upper and lower extremity. Bilateral Pedal edema. Few scattered ecchymoses bilateral UE. Rash/skin concern on the ENMT: Hearing Assessment-normal to conversational speech. Nose and sinus- No sinus tenderness along frontal/maxillary region. External appearance normal and midline. Nares- bilateral quiet airflow, no discharge. Nasal mucosa- No bleeding noted and no ulcerations observed. [place], moist. Turbinates non boggy. Lips- normal color, moist without cracks/lesions Oral Cavity/Palate- hard/soft palate intact without lesions, oral mucosa pink and moist. Dentition assessed Oropharynx- no pharyngeal erythema, Uvula midline. No post nasal drip. No exudate. Salivary glands- Non tender to palpation CHEST/LUNG: Inspection- symmetric chest wall no pectus deformity. Normal effort , no distress, no use of accessory muscles. Palpation- nontender sternum, ribline. No abnormal pulsations. Auscultation- Breath sounds normal throughout all lung luque. Normal tracheal sounds, Normal bronchial sounds overlying sternum, Bronchovessicular sounds normal between scapulae posteriorly, Normal vessicular breath sounds heard throughout periphery. Lungs are clear today. Adventitious sounds- No wheezes, rales, rhonchi. CARDIOVASCULAR: Carotid artery- normal, no bruits or abnormal pulsations. Jugular vein- no pulsations. Palpation/Percussion- Normal PMI, no palpable thrill Auscultation- Regular rate and rhythm. III/ murmur noted in sitting, Extremities- No cyanosis,+ bilateral 1+ pitting edema, increased warmth. ABDOMEN: Inspection- normal and no visible pulsations. Normal contour. Auscultation- Bowel sounds normal, no abdominal bruits. Palpation/Percussion- soft, non-tender, no rebound tenderness, no rigidity (guarding), no jar tenderness, no masses. Liver/spleen-no HSM Peripheral Vascular: Upper extremity Left- Normal temperature with pink nailbeds and no ulcerations. Upper extremity Right- Normal temperature with pink nailbeds and no ulcerations. Lower extremity- Normal temperature with pink nailbeds and no ulcerations. DP pulses 2+ bilaterally. Pedal hair reduced. Normal capillary refill. Edema- Pedal edema. Musculoskeletal: Generalized-No generalized swelling or edema of extremities, + Pedal edema, neurovascularly intact all four extremities. Spine, ribs, and pelvis: Spine, ribs, pelvis: FINDINGS:, tenderness, bandaged LSP. Steri in place. 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 Sitting mostly in the recliner. Stability: FINDINGS: normal Muscle strength/tone: FINDINGS: Reduced, guarding is present. Wound is bandaged. C/D/I.Steri present. Upper extremity: Right upper extremity: FINDINGS: normal, other (MCP right hand prominently enlarged. tenderness hand/wrist. No tenderness lat/med epicondyle, no tenderness olecranon. NO tenderness shoulder. Clavicle intact non tende.r ) , tenderness, NEGATIVE FOR: contractures, crepitus, deformity, swelling Left upper extremity: MCP enlarged R>>L. Tenderness wrist, hand, no tenderness medial/lateral epicondyle or olecranon. No tenderness about clavicle. ), tenderness, NEGATIVE FOR: contractures, crepitus, deformity, swelling Muscle strength/tone: FINDINGS: normal Left upper extremity: Range of motion: normal Stability: FINDINGS: normal Muscle strength/tone: FINDINGS: normal Neurological: General- Moves all 4 extremities symmetrically. Symmetrical face and body posture. Cranial nerves- individually evaluated II-XII and intact. PERRLA, Normal EOMI, visual/special senses appear intact, Face is symmetrical and normal sensation/movement, normal tongue, normal strength/posture of neck musculature. Neuropsych: Oriented- Person, place, time. (AAOx3), Mood/affect- normal and congruent. Able to articulate well. Speech-Normal speech, normal rate, normal tone, normal use of language, volume and coherence. Thought content- normal with ability to perform basic computations and apply abstract thought/reason. Associations- intact, no SI/HI, no hallucinations, delusions, obsessions. Judgment/insight- Appropriate. Lymphatic: Head/Neck- normal size and non tender to palpation. (1) Spondylolisthesis at L4-L5 level Status: Acute Code(s): M43.16 - SPONDYLOLISTHESIS, LUMBAR REGION SNOMED Code (s): 319999161 (2) Peripheral edema Status: Inactive Code(s): R60.9 - EDEMA, UNSPECIFIED SNOMED Code(s): 741639548 Plan: Spondylolisthesis L4-5: Post surgical, pain controlled with opiates. HD #7. Mild constipation. Home visit done today. Patient continues to improve. Following with phys therapy and Occ therapy. Home visit Discussed with patient , document not yet available. Added colace for constipation. Ramp is present at home. Likely does not need walker in bedroom. He needs new chair per his report. - Continue Admit to TCU - Vitals per TCU admission - No telemetry - labs CBC/CMP to be ordered - Pain control with oral meds - Phs therapy - Occ therapy - TILA brace when out of bed Essential HTN: Chronic/controlled - Continue home meds. Asthma: Chronic/controlled - Continue home meds. Hypothyroid: Chronic/controlled. Labs f/u outpatient. - Continue home meds. - f/u outpatient. Constipation: Add colace. Add prunes. Suspect opiate induced. Will f/u with results of colace. Discussed senna, discussed laxatives. He wanted to try colace first. Scrotal irritation: Reviewed to wear underwear, he does not like to. We discussed keeping the scrotum off of the legs to prevent irritation. Peripheral edema: New problem, get in bed and elevate legs. Weight tomorrow. Reassess fluid by nursing tomorrow. Diet: Regular DVT: Prophylactic early ambulation. Up and moving. Activity: Per therapy. Disposition: Balance and coordination/strengthening to continue. Has f/u with ortho this . I will likely d/c him from TCU to home health after that visit. 25 minutes spent rounding with patient today. 25 minutes face to face today. Reviewed nursing notes, phys/occ therapy notes, discussed discharge information with patient.
[2019-05-18] MEDS: COLACE PO SCH (20:35)
[2019-05-19] MEDS: SYNTHROID PO SCH (05:43)
[2019-05-19] MEDS: ADVAIR 250-50 DISKUS IH SCH ×2 (08:23→20:39)
[2019-05-19] MEDS: SINGULAIR PO SCH (08:23)
[2019-05-19] MEDS: BUPROPION HCL 200 MG PO SCH (08:23)
[2019-05-19] MEDS: FERROUS SULFATE PO SCH (08:24)
[2019-05-19] MEDS: COLACE PO SCH ×2 (08:24→20:39)
[2019-05-19] MEDS: ZESTRIL PO SCH (08:24)
[2019-05-19] MEDS: LIPITOR PO SCH (08:24)
[2019-05-19] MEDS: NON-FORMULARY MEDICATION (Ketotifen Fumarate [Zaditor] 1 DROP) EACHEYE SCH ×2 (08:25→20:39)
[2019-05-20] MEDS: NORCO 5-325 PO PRN (03:59)
[2019-05-20] MEDS: SYNTHROID PO SCH (05:43)
[2019-05-20] MEDS: ZESTRIL PO SCH (08:19)
[2019-05-20] MEDS: FERROUS SULFATE PO SCH (08:19)
[2019-05-20] MEDS: ADVAIR 250-50 DISKUS IH SCH ×2 (08:19→21:26)
[2019-05-20] MEDS: SINGULAIR PO SCH (08:19)
[2019-05-20] MEDS: COLACE PO SCH ×2 (08:20→21:26)
[2019-05-20] MEDS: LIPITOR PO SCH (08:20)
[2019-05-20] MEDS: BUPROPION HCL 200 MG PO SCH (08:21)
[2019-05-20] MEDS: NON-FORMULARY MEDICATION (Ketotifen Fumarate [Zaditor] 1 DROP) EACHEYE SCH ×2 (08:21→21:26)
--- NOTE | 2019-05-20 13:07 | PCM.PROG ---
Subjective: 78 yo WM admitted on 05/12/19 now HD #9 in TCU for Phys/Occ therapy Post surgical L4/5 fusion Spondlyolisthesis L4/5. Chronic arthritis, chronic falls, chronic bilateral knee pain, HTN, Hyperlipidemia, hypothyroidism, chronic hand pain, tremor, allergic rhinitis. Since his arrival on sat05/12/19, he has been afebrile, BP and HR have been stable. He is tolerating full diet. Meals consumed 100%. He has no IV. Voids 05/18-present 25, BM 3 on 05/18 and non on . Weight is maintained. Pain continues to fluctuate. He is using norco for pain 5/325 PRN, tylenol intermittently. Max tylenol dose 2000mg per day. Dressing changed regularly. Ambulating regularly. Good pace. Using grabber to put on shoes. Sleeping in recliner, not wanting to get into bed. Rash in groin resolved when wearing underwear. He is not wearing any at present. Not comfortable in chair. Up independently with walker now. Up and ambulating. Discussed REBECCA hosing with patient to help with foot edema. HE does not want to be in the bed. HE will lay flat, does not like head down. Feeling better overall. Still tells nursing and me that he feels weak in legs. Maintains self in recliner. Per therapy and nursing, impulsive, gets up self. He has had to be reminded to use the walker, to use the call light. Several mentions of sinus HUGHES. HE has been treated for this several times by me for outpatient therapy. 3 voids and 2 BM 05/20/19. Weight up to 184 from 181. Tolerating 100% of food. REVIEW OF SYMPTOMS: (Positives bolded) General: weight loss, fever, chills, night sweats, fatigue, appetite loss weight gain, foot dependent edema HEENT: blurry vision, eye pain, eye discharge, dry eyes, decreased vision, sore throat tinnitus, bloody nose, hearin gloss, sinus pain/pressure, ear pain/ pressure. Respiratory: shortness of breath, cough, hemoptysis, wheezing, pleurisy, Cardiovascular: chest pain, PND, palpitation, bilateral pedal edema, orthopnea , syncope, swelling of extremities Gastro: Nausea, vomiting, diarrhea, hematemesis, abdominal pain, constipation Genito: hematuria, dysuria, glycosuria, hesitancy, frequency, incontinence Musckelo: Arthralgia, myalgia, muscle weakness, joint swelling, BACK PAIN Skin: rash, pruritis, sores, nail changes, skin thickening, change in wart/mole , itching, rash, new lesions, pruritus, nail changes Neuro: Migraine, numbness, ataxia, tremor, vertigo, weakness, memory loss, Irritability, dizziness Endocrine: excessive thirst, polyuria, cold intolerance, heat intolerance, goiter Psychiatric: depression, anxiety, anti-depressants, alcohol abuse, drug abuse, insomnia, change in sleep pattern and mood changes Heme/lymph: easy bruising, bleeding gums, blood clots, swollen glands, lymphedema, Allergic/immune: allergic rhinitis, hay fever, asthma, hives Addendum: c/o REBECCA hosing to nursing. Refused to get into bed, refused to elevate legs. REBECCA hosing removed. Objective: Vital Signs - 24 hr 05/20/19 05/20/19 05:24 18:00 Temperature 98.1 F 98.4 F Pulse Rate 63 64 Respiratory 14 16 Rate Blood Pressure 118/61 121/62 O2 Sat by Pulse 96 95 Oximetry Constitutional: Appearance-No distress, Consistent with stated age. Eating Orientation- Oriented x 3, alert Build and Nutrition-[Normal BI 27.6] General - Patient is pleasant and cooperative with the interview and exam. Eating dinner , tolerating this well. 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 Integumentary: General-No rashes, ulcers or lesions. Palpation- Normal skin moisture/turgor. Skin is warm to touch, appropriate. Capillary refill is normal bilateral Upper and lower extremity. Bilateral Pedal edema. Few scattered ecchymoses bilateral UE. Rash/skin concern regarding scrotum is resolved. He has been non compliant with wearing underwear like requested. Head/Neck: Head- normocephalic and atraumatic. Neck- without visible/palpable lumps or pulsations. Palpation- No bony tenderness about head/neck along frontal, occipital, temporal, parietal, mastoid, jawline, zygoma, orbit or any other location. NO temporal artery tenderness. No TMJ tenderness. Neck Supple. Thyroid-No thyromegaly, no nodules ENMT: Hearing Assessment-normal to conversational speech. Nose and sinus- No sinus tenderness along frontal/maxillary region. External appearance normal and midline. Nares- bilateral quiet airflow, no discharge. Nasal mucosa- No bleeding noted and no ulcerations observed. [place], moist. Turbinates boggy, pale. ?Allergic process. . Lips- normal color, moist without cracks/lesions Oral Cavity/Palate- hard/soft palate intact without lesions, oral mucosa pink and moist. Dentition assessed Oropharynx- no pharyngeal erythema, Uvula midline. No post nasal drip. No exudate. Salivary glands- Non tender to palpation CHEST/LUNG: Inspection- symmetric chest wall no pectus deformity. Normal effort , no distress, no use of accessory muscles. Palpation- nontender sternum, ribline. No abnormal pulsations. Auscultation- Breath sounds normal throughout all lung luque. Normal tracheal sounds, Normal bronchial sounds overlying sternum, Bronchovessicular sounds normal between scapulae posteriorly, Normal vessicular breath sounds heard throughout periphery. Lungs are clear today. Adventitious sounds- No wheezes, rales, rhonchi. CARDIOVASCULAR: Carotid artery- normal, no bruits or abnormal pulsations. Jugular vein- no pulsations. Palpation/Percussion- Normal PMI, no palpable thrill Auscultation- Regular rate and rhythm. III/ murmur noted in sitting, Extremities- No cyanosis,+ bilateral 1+ pitting edema, increased warmth. ABDOMEN: Inspection- normal and no visible pulsations. Normal contour. Auscultation- Bowel sounds normal, no abdominal bruits. Palpation/Percussion- soft, non-tender, no rebound tenderness, no rigidity (guarding), no jar tenderness, no masses. Liver/spleen-no HSM Peripheral Vascular: Upper extremity Left- Normal temperature with pink nailbeds and no ulcerations. Upper extremity Right- Normal temperature with pink nailbeds and no ulcerations. Lower extremity- Normal temperature with pink nailbeds and no ulcerations. DP pulses 2+ bilaterally. Pedal hair reduced. Normal capillary refill. Edema- Pedal edema. Musculoskeletal: Generalized-Unchanged. 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 No generalized swelling or edema of extremities, +Pedal edema persists, neurovascularly intact all four extremities. Recommended REBECCA hosing. Spine, ribs, and pelvis: Spine, ribs, pelvis: FINDINGS:, tenderness, bandaged LSP. Steri in place. Range of motion: TILA on as he is out of bed. Sitting mostly in the recliner. Stability: FINDINGS: normal Muscle strength/tone: FINDINGS: Reduced, guarding is present. Wound is bandaged. C/D/I.Steri present. Upper extremity: Right upper extremity: FINDINGS: normal, other (MCP right hand prominently enlarged. tenderness hand/wrist. No tenderness lat/med epicondyle, no tenderness olecranon. NO tenderness shoulder. Clavicle intact non tende.r ) , tenderness, NEGATIVE FOR: contractures, crepitus, deformity, swelling Left upper extremity: MCP enlarged R>>L. Tenderness wrist, hand, no tenderness medial/lateral epicondyle or olecranon. No tenderness about clavicle. ), tenderness, NEGATIVE FOR: contractures, crepitus, deformity, swelling Muscle strength/tone: FINDINGS: normal Left upper extremity: Range of motion: normal Stability: FINDINGS: normal Muscle strength/tone: FINDINGS: normal Neurological: General- Moves all 4 extremities symmetrically. Symmetrical face and body posture. Cranial nerves- individually evaluated II-XII and intact. PERRLA, Normal EOMI, visual/special senses appear intact, Face is symmetrical and normal sensation/movement, normal tongue, normal strength/posture of neck musculature. Neuropsych: Oriented- Person, place, time. (AAOx3), Mood/affect- normal and congruent. Able to articulate well. Speech-Normal speech, normal rate, normal tone, normal use of language, volume and coherence. Thought content- normal with ability to perform basic computations and apply abstract thought/reason. Associations- intact, no SI/HI, no hallucinations, delusions, obsessions. Judgment/insight- Appropriate. Laboratory Last Values WBC 6.54 K/ul (4.2-10.2) 05/19/19 05:00 RBC 3.97 10^6/ul (4.70-6.10) L 05/19/19 05:00 Hgb 12.2 g/dl (14.0-18.0) L 05/19/19 05:00 Hct 37.3 % (42.0-52.0) L 05/19/19 05:00 MCV 94.0 fl (80.0-94.0) 05/19/19 05:00 MCH 30.7 pg (27.0-31.0) 05/19/19 05:00 MCHC 32.7 (31.8-35.4) 05/19/19 05:00 RDW Coeff of Cesar 13.3 % (11.6-14.8) 05/19/19 05:00 Plt Count 258 10^3/uL (140-440) 05/19/19 05:00 Immature Gran % (Auto) 0.8 % (0.0-5.0) 05/19/19 05:00 Neut % (Auto) 62.5 05/19/19 05:00 Lymph % (Auto) 20.2 (10.0-50.0) 05/19/19 05:00 [place] % (Auto) 9.3 (0-10) 05/19/19 05:00 Eos % (Auto) 6.0 % (0.0-7.0) 05/19/19 05:00 Baso % (Auto) 1.2 % (0.0-3.0) 05/19/19 05:00 Immature Gran # (Auto) 0.1 (0.0-1.0) 05/19/19 05:00 Neut # (Auto) 4.1 K/ul (2.0-6.9) 05/19/19 05:00 Lymph # (Auto) 1.3 K/uL (0.60-3.4) 05/19/19 05:00 [place] # (Auto) 0.6 K/uL (0.4-2.0) 05/19/19 05:00 Eos # (Auto) 0.4 K/ul (0.0-0.7) 05/19/19 05:00 Baso # (Auto) 0.1 K/uL (0-0.2) 05/19/19 05:00 Sodium 138.0 mmol/L (134.5-145) 05/19/19 05:00 Potassium 4.21 mmol/L (3.5-5.1) 05/19/19 05:00 Chloride 102.8 mmol/L (98-107) 05/19/19 05:00 Carbon Dioxide 24.5 mmol/L (22-30.0) 05/19/19 05:00 Anion Gap 14.91 05/19/19 05:00 BUN 22.4 mg/dL (9-20) H 05/19/19 05:00 Creatinine 0.93 mg/dL (0.60-1.10) 05/19/19 05:00 Estimated GFR (MDRD) 79.00 mL/min 05/19/19 05:00 BUN/Creatinine Ratio 24.08 05/19/19 05:00 Glucose 90.4 mg/dL (74-106) 05/19/19 05:00 Calcium 9.21 mg/dL (8.4-10.2) 05/19/19 05:00 Total Bilirubin 0.98 mg/dL (0.2-1.3) 05/19/19 05:00 AST 29.6 U/L (17-59) 05/19/19 05:00 ALT 25.8 U/L (0-50) 05/19/19 05:00 Alkaline Phosphatase 110.8 U/L (56-119) 05/19/19 05:00 Total Protein 7.09 g/dL (6.3-8.2) 05/19/19 05:00 Albumin 4.27 g/dL (3.5-5.0) 05/19/19 05:00 Globulin 2.82 05/19/19 05:00 Albumin/Globulin Ratio 1.51 05/19/19 05:00 (1) Spondylolisthesis at L4-L5 level Status: Acute Code(s): M43.16 - SPONDYLOLISTHESIS, LUMBAR REGION SNOMED Code (s): 220067373 (2) Peripheral edema Status: Inactive Code(s): R60.9 - EDEMA, UNSPECIFIED SNOMED Code(s): 367455769 Plan: Spondylolisthesis L4-5: Post surgical, pain controlled with opiates. HD #9. Mild constipation. Home visit done Friday 05/18 and went well. He has appt with ortho tomorrow. Plan to d/c post Ortho evaluation. - Continue Admit to TCU, plan d/c tomorrow - Vitals q8-12 hr - labs CBC/CMP reviewed - Pain control with oral meds - Phs therapy - Occ therapy - TILA brace when out of bed Essential HTN: Chronic/controlled - Continue home meds. Asthma: Chronic/controlled - Continue home meds. Hypothyroid: Chronic/controlled. Labs f/u outpatient. - Continue home meds. - f/u outpatient. Constipation: Add colace. 2 BM yesterday, doing okay. Scrotal irritation: Reviewed to wear underwear, again, he does not like to. We discussed keeping the scrotum off of the legs to prevent irritation. Peripheral edema: Recommended to get in bed and elevate legs. He does not want to. Recommended REBECCA hosdesire .R/B/A to this d/w patient. He will try them, but leery as this can cause sweating and he cannot have that. Diet: Regular DVT: Prophylactic early ambulation. Up and moving. Activity: Per therapy. Disposition: Balance and coordination/strengthening to continue w/ therapy. Plan to d/c home tomorrow after ortho visit. 15 minutes spent rounding with patient today. Reviewed nursing notes, phys/occ therapy notes, discussed discharge information with patient.
[2019-05-20] MEDS: TYLENOL PO PRN (22:23)
[2019-05-21] MEDS: NORCO 5-325 PO PRN (03:35)
[2019-05-21 05:27] VITALS: BP 115/69; TEMP 97.9
[2019-05-21] MEDS: SYNTHROID PO SCH (05:46)
[2019-05-21] MEDS: LIPITOR PO SCH (11:25)
[2019-05-21] MEDS: SINGULAIR PO SCH (11:25)
[2019-05-21] MEDS: FERROUS SULFATE PO SCH (11:25)
[2019-05-21] MEDS: ADVAIR 250-50 DISKUS IH SCH (11:25)
[2019-05-21] MEDS: BUPROPION HCL 200 MG PO SCH (11:25)
[2019-05-21] MEDS: COLACE PO SCH (11:26)
[2019-05-21] MEDS: NON-FORMULARY MEDICATION (Ketotifen Fumarate [Zaditor] 1 DROP) EACHEYE SCH (11:26)
[2019-05-21] MEDS: ZESTRIL PO SCH (11:26)
[2019-05-21] MEDS: TYLENOL PO PRN (12:35)
--- NOTE | 2019-05-21 13:53 | PCM.DC ---
Final Diagnosis: Spondylolisthesis at L4-L5 level (Acute) Essential HTN Hypothyroidism Peripheral edema Non compliant (1) Spondylolisthesis at L4-L5 level Status: Acute Code(s): M43.16 - SPONDYLOLISTHESIS, LUMBAR REGION SNOMED Code (s): 076493699 (2) Peripheral edema Status: Inactive Code(s): R60.9 - EDEMA, UNSPECIFIED SNOMED Code(s): 093298885 Reason for Hospitalization: Post operative physical therapy and occupational therapy for strength/balance. Prognosis at Discharge: Good. Strength better. Returning to normal baseline ADL. Condition at Discharge: Improved. Working with phys therapy/occ therapy, had OV with Dr. Mendez today. The patient wants to go home today. Aware of risks/benefits to that. Requested personally to go home. He said Dr. Mendez said it was okay. I have called and left message with Dr. Mendez nurse. Medications at Discharge: Ambulatory Orders Medication Instructions Recorded Albuterol Sulfate 0.042% Neb 2.5 mg NEB Q6HR PRN 05/12/19 [Albuterol 0.042% Neb] Azelastine HCl 1 drop EACHEYE DAILY PRN 05/12/19 Bupropion HCl [Wellbutrin] 200 mg PO DAILY 05/12/19 Ketotifen Fumarate [Zaditor] 1 drop EACHEYE BID 05/12/19 Lisinopril [Zestril] 5 mg PO DAILY 05/12/19 Acetaminophen [Tylenol] 500 mg PO Q12H PRN 30 Days #60 05/21/19 tablet Docusate Sodium [Colace] 100 mg PO BID 30 Days #60 capsule 05/21/19 Ferrous Sulfate 324 mg PO DAILY tablet. 05/21/19 Hydrocodone Bit/Acetaminophen 0.5 - 1 tab PO BID 7 Days #14 tab 05/21/19 [[place] 5-325] Hydrocodone/Acetaminophen 5 mg PO BID PRN #14 tablet 05/21/19 [Hydrocodone-Acetamin 5-325 mg] Lab/Diagnostics: Laboratory Last Values WBC 6.54 K/ul (4.2-10.2) 05/19/19 05:00 RBC 3.97 10^6/ul (4.70-6.10) L 05/19/19 05:00 Hgb 12.2 g/dl (14.0-18.0) L 05/19/19 05:00 Hct 37.3 % (42.0-52.0) L 05/19/19 05:00 MCV 94.0 fl (80.0-94.0) 05/19/19 05:00 MCH 30.7 pg (27.0-31.0) 05/19/19 05:00 MCHC 32.7 (31.8-35.4) 05/19/19 05:00 RDW Coeff of Cesar 13.3 % (11.6-14.8) 05/19/19 05:00 Plt Count 258 10^3/uL (140-440) 05/19/19 05:00 Immature Gran % (Auto) 0.8 % (0.0-5.0) 05/19/19 05:00 Neut % (Auto) 62.5 05/19/19 05:00 Lymph % (Auto) 20.2 (10.0-50.0) 05/19/19 05:00 [place] % (Auto) 9.3 (0-10) 05/19/19 05:00 Eos % (Auto) 6.0 % (0.0-7.0) 05/19/19 05:00 Baso % (Auto) 1.2 % (0.0-3.0) 05/19/19 05:00 Immature Gran # (Auto) 0.1 (0.0-1.0) 05/19/19 05:00 Neut # (Auto) 4.1 K/ul (2.0-6.9) 05/19/19 05:00 Lymph # (Auto) 1.3 K/uL (0.60-3.4) 05/19/19 05:00 [place] # (Auto) 0.6 K/uL (0.4-2.0) 05/19/19 05:00 Eos # (Auto) 0.4 K/ul (0.0-0.7) 05/19/19 05:00 Baso # (Auto) 0.1 K/uL (0-0.2) 05/19/19 05:00 Sodium 138.0 mmol/L (134.5-145) 05/19/19 05:00 Potassium 4.21 mmol/L (3.5-5.1) 05/19/19 05:00 Chloride 102.8 mmol/L (98-107) 05/19/19 05:00 Carbon Dioxide 24.5 mmol/L (22-30.0) 05/19/19 05:00 Anion Gap 14.91 05/19/19 05:00 BUN 22.4 mg/dL (9-20) H 05/19/19 05:00 Creatinine 0.93 mg/dL (0.60-1.10) 05/19/19 05:00 Estimated GFR (MDRD) 79.00 mL/min 05/19/19 05:00 BUN/Creatinine Ratio 24.08 05/19/19 05:00 Glucose 90.4 mg/dL (74-106) 05/19/19 05:00 Calcium 9.21 mg/dL (8.4-10.2) 05/19/19 05:00 Total Bilirubin 0.98 mg/dL (0.2-1.3) 05/19/19 05:00 AST 29.6 U/L (17-59) 05/19/19 05:00 ALT 25.8 U/L (0-50) 05/19/19 05:00 Alkaline Phosphatase 110.8 U/L (56-119) 05/19/19 05:00 Total Protein 7.09 g/dL (6.3-8.2) 05/19/19 05:00 Albumin 4.27 g/dL (3.5-5.0) 05/19/19 05:00 Globulin 2.82 05/19/19 05:00 Albumin/Globulin Ratio 1.51 05/19/19 05:00 Education Provided to Patient and Family: 1. Therapy education/recommendations. Follow-ups: Dr. Lugo [address] Mendez as directed through his office. Disposition: HOME SELF-CARE Hospital Course: Admitted to [facility] 05/12/19 post operatively for physical therapy and occuptational therapy. Pain controlled with [place]co 5/325 PRN. Patient ambulated regularly with walker, remained out of bed in bedside chair with TILA in place. C/O dependent edema, attempted REBECCA hosing, he did not tolerate and asked to remove. Would not get into bed, wanted bedside chair, wanted to go home MARCIA. He had appt with Dr. Mendez today. I have contacted their office for his most recent OV. He has appt with me next saturday 1300 05/27/19. The patient wound looked great. He was up and moving eating 100%. Phys/occ therapy have cleared him as of today. I have placed order for home health for him. Vital Signs - 24 hr 05/20/19 05/20/19 05/21/19 18:00 20:00 05:26 Temperature 98.4 F 97.9 F Pulse Rate 64 58 L Respiratory 16 18 18 Rate Blood Pressure 121/62 115/69 O2 Sat by Pulse 95 95 Oximetry Constitutional: Appearance-No distress, Consistent with stated age. Eating Orientation- Oriented x 3, alert Build and Nutrition-[Normal BI 27.6] General - Patient is pleasant and cooperative with the interview and exam. Eating dinner , tolerating this well. 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 Not wearing REBECCA hosing, refused. ENMT: Hearing Assessment-normal to conversational speech. Nose and sinus- No sinus tenderness along frontal/maxillary region. External appearance normal and midline. Nares- bilateral quiet airflow, no discharge. Nasal mucosa- No bleeding noted and no ulcerations observed. [place], moist. Turbinates boggy, pale. ?Allergic process. . Lips- normal color, moist without cracks/lesions Oral Cavity/Palate- hard/soft palate intact without lesions, oral mucosa pink and moist. Dentition assessed Oropharynx- no pharyngeal erythema, Uvula midline. No post nasal drip. No exudate. Salivary glands- Non tender to palpation CHEST/LUNG: Auscultation- Breath sounds normal throughout all lung luque. Normal tracheal sounds, Normal bronchial sounds overlying sternum, Bronchovessicular sounds normal between scapulae posteriorly, Normal vessicular breath sounds heard throughout periphery. Lungs are clear today. Adventitious sounds- No wheezes, rales, rhonchi. CARDIOVASCULAR: Carotid artery- normal, no bruits or abnormal pulsations. Jugular vein- no pulsations. Palpation/Percussion- Normal PMI, no palpable thrill Auscultation- Regular rate and rhythm. III/ murmur noted in sitting, Extremities- No cyanosis,+ bilateral 1+ pitting edema, increased warmth. ABDOMEN: Inspection- normal and no visible pulsations. Normal contour. Auscultation- Bowel sounds normal, no abdominal bruits. Palpation/Percussion- soft, non-tender, no rebound tenderness, no rigidity (guarding), no jar tenderness, no masses. Liver/spleen-no HSM Peripheral Vascular: Lower extremity- Normal temperature with pink nailbeds and no ulcerations. DP pulses 2+ bilaterally. Pedal hair reduced. Normal capillary refill. Edema- Pedal edema trace. Wearing crock shoes. NO REBECCA in place. Musculoskeletal: Generalized-Unchanged. 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 No generalized swelling or edema of extremities, +Pedal edema persists, neurovascularly intact all four extremities. Recommended REBECCA hosing. Spine, ribs, and pelvis: Spine, ribs, pelvis: FINDINGS:, tenderness, bandaged LSP. Steri in place. Range of motion: [employer] on as he is out of bed. Sitting mostly in the recliner. Stability: FINDINGS: normal Muscle strength/tone: FINDINGS: Reduced, guarding is present. Wound is bandaged. C/D/I.Steri present. Upper extremity: Right upper extremity: FINDINGS: normal, other (MCP right hand prominently enlarged. tenderness hand/wrist. No tenderness lat/med epicondyle, no tenderness olecranon. NO tenderness shoulder. Clavicle intact non tende.r ) , tenderness, NEGATIVE FOR: contractures, crepitus, deformity, swelling Left upper extremity: MCP enlarged R>>L. Tenderness wrist, hand, no tenderness medial/lateral epicondyle or olecranon. No tenderness about clavicle. ), tenderness, Muscle strength/tone: FINDINGS: normal Left upper extremity: Range of motion: normal Stability: FINDINGS: normal Muscle strength/tone: FINDINGS: normal Neurological: General- Moves all 4 extremities symmetrically. Symmetrical face and body posture. Cranial nerves- individually evaluated II-XII and intact. PERRLA, Normal EOMI, visual/special senses appear intact, Face is symmetrical and normal sensation/movement, normal tongue, normal strength/posture of neck musculature. Neuropsych: Oriented- Person, place, time. (AAOx3), Mood/affect- normal and congruent. Able to articulate well. Speech-Normal speech, normal rate, normal tone, normal use of language, volume and coherence. Thought content- normal with ability to perform basic computations and apply abstract thought/reason. Associations- intact, no SI/HI, no hallucinations, delusions, obsessions. Judgment/insight- Appropriate. Plan: 1. Discharge to home today 2. Home health referral placed 3. Will provide opiate medications for pain. [place] 5/325 1/2 to 1 po daily to BID PRN pain. 4. Resume home medications. 5. Activity per ortho and per therapy recommendations. Highly encouraged ambulation with walker. 6. [employer]ER while not in bed. 7. Diet normal/regular - Obtain recommendations from OV from Dr. Mendez today. - Office visit with me next week. 1300 05/27/19 for hospital follow-up Discharge today <30 minutes.
== END 2019-05-21 15:30 | disposition home or self-care (01) | DRG 948 ==
LOC: MEDSURG B 12:17
PROVIDERS: ADMIT Family Medicine; ATTEND Family Medicine
DX: R60.9 Edema, unspecified (principal); I10 Essential (primary) hypertension; J45.909 Unspecified asthma, uncomplicated; E03.9 Hypothyroidism, unspecified; K59.00 Constipation, unspecified
CPT/HCPCS: 36415; 80053; 85025; 87081; 97802